=== PATIENT | male | born 1975 | race Hispanic/Latino ===

== ENCOUNTER → 2016-10-28 | Outpatient (CLI) | payer OTHER | LOC: YCFC.O 08:57 | PROVIDERS: ATTEND Nurse Practitioner Family | DX: K76.0 Fatty (change of) liver, not elsewhere classified (principal); Z13.220 Encounter for screening for lipoid disorders ==

== ENCOUNTER → 2017-01-20 | Outpatient (CLI) | payer OTHER | LOC: YCFC.O 09:18 | PROVIDERS: ATTEND Nurse Practitioner Family | DX: R73.01 Impaired fasting glucose (principal); E78.2 Mixed hyperlipidemia ==

== ENCOUNTER → 2018-10-18 | Outpatient (CLI) | payer OTHER | LOC: LAB.O 09:13 | PROVIDERS: ATTEND Nurse Practitioner Family | DX: I10 Essential (primary) hypertension (principal); E78.2 Mixed hyperlipidemia ==